=== PATIENT | female | born 1990 | race Caucasian/White ===

== ENCOUNTER 2022-02-04 04:32 | Emergency (ER) | payer BC, SELFPAY ==
[2022-02-04 04:48] VITALS: BP 110/87; PULSE 90; RESP 16; TEMP 36.9; O2SAT 100
--- NOTE | 2022-02-04 05:08 | ED.SKABFB ---
HPI - Skin/Abscess/Foreign Bdy General Chief complaint: Skin/Abscess/Foreign Body Stated complaint: left nare foreign body Time Seen by Provider: 02/04/22 04:58 Source: patient History of Present Illness HPI narrative: Patient presents with concern for foreign body in her left nare. Patient reports she sleeps walking this evening she dreamed she was putting something up her nose but is unsure what it was when she woke up she felt irritation to her left nostril she is trying to check her nose but continued have some irritation she can get back to sleep because she was worried maybe she did put something up her nose so she came to ER for evaluation. Denies any coughing choking she denies any shortness of breath or dizziness denies any globus sensation or difficulty swallowing. She denies any foreign body sensation Related Data Home Medications Medication Instructions Recorded Confirmed No Home Medications 02/04/22 Allergies Allergy/AdvReac Type Severity Reaction Status Date / Time No Known Allergies Allergy Unverified 02/04/22 04:52 Review of Systems Review of Systems: CONSTITUTIONAL: Denies fever, chills, or sweats. EYES: Denies visual changes, redness, or discharge. ENT: Denies rhinorrhea, congestion, sore throat, or otalgia. CARDIOVASCULAR: Denies chest pain, palpitations, or edema. RESPIRATORY: Denies cough or dyspnea. Exam Narrative: GENERAL: Well-appearing, well-nourished, and in no acute distress. HEAD: Normocephalic, atraumatic. EYES: PERRLA and EOMI. ENT: Nares clear, no retained foreign body visualized. Minimal erythema and edema in the left nare NECK: Supple. No masses. SKIN: Warm, dry, no rash. NEURO: No focal deficits. Alert and oriented x3. PSYCH: Normal mood and affect. Course Vital Signs Vital signs: Vital Signs Temperature 36.9 C 02/04/22 04:48 Pulse Rate 90 02/04/22 04:48 Respiratory Rate 16 02/04/22 04:48 Blood Pressure 110/87 02/04/22 04:48 Pulse Oximetry 100 02/04/22 04:48 Oxygen Delivery Room Air 02/04/22 04:48 Temperature 36.9 C 02/04/22 04:48 Pulse Rate 80 02/04/22 05:27 Respiratory Rate 16 02/04/22 05:27 Blood Pressure 100/79 02/04/22 05:27 Pulse Oximetry 100 02/04/22 05:27 Oxygen Delivery Room Air 02/04/22 04:48 MDM - Skin/Abscess/Foreign Bdy MDM Narrative Medical decision making narrative: H&P as above, vss, pt looks clinically well, exam with clear nares, labs/img considered, symptomatic relief available as needed, on reevaluation pt continues to looks clinically well. Suspect irritation related to patient frequently checking her nose for foreign body, dns foreign body or airway compromise. plan to tx/monitor as op w/ pcm f/u findings/plan discussed with pt, pt agree/comfortable with plan, return precautions given Discharge Plan Discharge Clinical Impression: Nose irritation Patient Disposition: Home, Self-Care Condition: Improved Instructions: Antibiotic Form Additional Instructions: Please return if your symptoms worsen or fail to improve. If you develop a fever, can not eat/drink anything or if you have any other concerns. Prescriptions: No Action No Home Medications Follow-up/Referrals: PHYSICIAN,VENDING ROUTE DRIVER [Primary Care Provider] - Time of Disposition: 05:11
[2022-02-04 05:27] VITALS: BP 100/79; PULSE 80; RESP 16; O2SAT 100
== END 2022-02-04 05:28 | disposition home or self-care (01) ==
PROVIDERS: Emergency Provider Emergency Medicine
DX: J34.89 Other specified disorders of nose and nasal sinuses (principal)
CPT/HCPCS: 99281